=== PATIENT | female | born 1990 | race Two or more races ===

== ENCOUNTER 2022-12-16 10:47 | Inpatient (IN) | payer OTHER ==
[~2022-12-16] VITALS: Ht 157.5 cm; Wt 3.2 kg
[2022-12-21] MEDS ORDERED: PRENATAL TABLE1 EAC1 PO (04:14)
[2022-12-23] MEDS ORDERED: IRON325 MG PO (09:08)
[2022-12-23] MEDS ORDERED: IBUPROFEN800 MG PO (09:08)
== END 2022-12-23 13:41 | disposition home or self-care (01) | DRG 785 ==
LOC: O/R 12-21 04:10 → LDR 12-21 04:10 → O/R 12-21 07:28 → OB/GYN 12-21 10:04
PROVIDERS: ADMIT Specialist; ATTEND Specialist
PROC: 0UB70ZZ Excision of Bilateral Fallopian Tubes, Open Approach (ICD-10-PCS; 2022-12-21)
PROC: 4A1HXCZ Monitoring of Products of Conception, Cardiac Rate, External Approach (ICD-10-PCS; 2022-12-21)
PROC: 10D00Z1 Extraction of Products of Conception, Low, Open Approach (ICD-10-PCS; principal; 2022-12-21 10:45)
DX: O34.211 Maternal care for low transverse scar from previous cesarean delivery (principal); Z3A.38 38 weeks gestation of pregnancy; Z37.0 Single live birth; Z20.822 Contact with and (suspected) exposure to COVID-19; Z30.2 Encounter for sterilization